=== PATIENT | male | born 1975 | race Caucasian/White ===

== ENCOUNTER 2025-02-03 18:34 | Emergency (ER) | payer BC, SELFPAY ==
[2025-02-03 18:38] VITALS: BP 124/82
--- NOTE | 2025-02-03 18:50 | ED.GENMED ---
ED Provider Triage
<Mignon Doll PA-C - Last Filed: 02/03/25 18:51>
-
Patient seen by provider in Triage?: Seen in Triage
Attestation: A medical screening examination has been initiated by a qualified medical provider. Based on the assessment performed at this time, it has been determined that an emergent medical condition may exist and the patient has been informed
that further medical evaluation and possible additional diagnostic testing may be needed.
HPI: 49yoM here with L testicular pain x 3 days and blurred vision x 2 days. Feels like it is hard to focus. Had some pain with urination earlier. No headache or dizziness.
GENERAL: Alert , in no apparent distress
EYE: No visual abnormalities.
NECK: Trachea midline
ENT: No visible abnormalities.
LUNGS: No acute respiratory distress
NEUROLOGICAL: Alert and oriented
SKIN: Skin intact. No visible changes.
MUSCULOSKELETAL: Moving extremities normally
PSYCH: Normal and appropriate interaction.
This is a medical evaluation conducted in person to initiate diagnostic evaluation and provide initial therapeutics. Please see further documentation by the treating clinician.
Basic labs, UA, scrotal ultrasound, and CT head ordered.
History of Present Illness
<Mignon Doll PA-C - Last Filed: 02/03/25 18:51>
General
Chief Complaint: Visual Problem
Time Seen by Provider: 02/03/25 23:36
<Eleazar Reyes DO - Last Filed: 02/04/25 00:01>
General
Source: patient
History of Present Illness
History of Present Illness:
Note:
CHIEF COMPLAINT(S)
Vision changes and abdominal pain.
HISTORY OF PRESENT ILLNESS
The patient is a 49-year-old male who presents with complaints of altered vision and abdominal discomfort. Symptoms began on Monday. The patient describes his vision as being out of focus, seeing double when using one eye at a stoplight. He
attempted to manage symptoms with increased sugar intake, like cupcakes and chocolate milk, believing it may be related to low blood sugar, which appeared to help temporarily. However, vision changes persisted, particularly worsening late in the day
yesterday and continuing to be problematic today. Additionally, the patient reports abdominal pain, associating the onset with a different abdominal workout done at the gym on . He mentions soreness and pain during movements involving
lifting his legs. The patient denies any headache but describes a feeling of 'head not being right,' suggesting some disorientation. Urinary symptoms include painful urination with reduced flow. There is no hematuria. He mentioned no significant
limitation in physical activities despite the visual disturbances.
PAST MEDICAL AND SURGICAL HISTORY
The patient has a surgical history of cholecystectomy (gallbladder removal).
CHRONIC MEDICAL CONDITIONS SIGNIFICANTLY AFFECTING CARE
The patient has a history of hyperlipidemia, for which he is taking medication.
SOCIAL DETERMINANTS AFFECTING HEALTH
The patient reports engaging frequently in vaping, which may be contributing to his symptoms.
MEDICATIONS
- Atorvastatin for hyperlipidemia
- Meloxicam for severe arthritis
- Cortisone shots every four months for arthritis
REVIEW OF SYSTEMS
- Vision: Blurred vision, seeing double in one eye.
- Genitourinary: Painful urination, decreased flow.
- Neurological: No headaches, but a sensation of the head feeling 'off.'
- Musculoskeletal: Pain and tenderness during leg lifting, potentially linked to recent gym activity.
PHYSICAL EXAM
General: Alert, oriented. No acute distress.
Abdomen: Tenderness noted in the suprapubic area.
Neurological: Cranial nerves intact, normal [id number] test, no pronator drift.
Genitourinary: Testicles normal, tenderness noted at the base of the bilateral scrotum, penis normal.
PLAN
- Review ultrasound and lab results for further assessment.
- Discharge with advice to monitor symptoms, particularly scrotal tenderness.
- Recommend reducing or discontinuing vaping if possible.
- Suggest using tight underwear and taking ibuprofen for pain management.
- Follow up with visual acuity tests and a possible program attendant consultation if vision does not improve.
DIFFERENTIAL DIAGNOSIS
The Differential Diagnosis includes, in no particular order and is not limited to:
- Strain from abdominal workout
- Urinary tract infection
- Benign prostatic hyperplasia
- Visual disturbances secondary to possible systemic issues
- Eye strain or ocular problem
- Anxiety-related visual symptoms
- Early diabetic retinopathy
- Hypertension-related vision changes
- Neurological disorder affecting vision
- Migraine with visual aura
Disposition:
SUMMARY OF ENCOUNTER
The patient is a 49-year-old male who presented with complaints of lower abdominal discomfort extending into the scrotum and groin, predominantly on the left side, and intermittent blurred vision. He reported that while his gross vision is normal,
he struggles with fine detail. The patient had been involved in an abdominal muscle workout recently, which he associates with his symptoms. A comprehensive evaluation was conducted, including a normal urinalysis, normal comprehensive metabolic
panel (CMP), liver function tests (LFT), and complete blood count (CBC). A CT scan of the head revealed no intracranial hemorrhage and was otherwise unremarkable. An ultrasound of the scrotum showed no evidence of testicular torsion, epididymitis,
or significant pathology, with only small bilateral hydroceles noted. The patient�s physical exam was grossly benign, showing no evidence of stroke.
PLAN
Recommend follow-up with primary care physician (PCP) and ophthalmology if symptoms persist. Advised to avoid vaping due to possible health implications.
INDEPENDENT REVIEW OF LABS AND INTERPRETATION OF TESTS
- My independent review of the urinalysis is negative.
- My independent review of the comprehensive metabolic panel (CMP) is normal.
- My independent review of liver function tests (LFT) is normal.
- My independent review of the complete blood count (CBC) is normal, with white cell count and hemoglobin levels within normal limits.
RADIOLOGY RESULTS
- My independent interpretation of the CT scan of the head shows no intracranial hemorrhage and is otherwise normal.
- My independent interpretation of the ultrasound of the scrotum shows no sonographic evidence of testicular torsion or epididymitis; small bilateral hydroceles are present.
PATIENT EDUCATION AND COUNSELING
Informed the patient about the importance of follow-up care with a primary care physician and program attendant if symptoms persist. Advised to avoid vaping, as it may contribute to health issues.
FOLLOW-UP INSTRUCTIONS
The patient was advised to follow up with his primary care physician and to schedule an ophthalmology appointment if visual symptoms continue.
MEDICATION RECONCILIATION
The patient mentioned using an algae medicine which needs verification for specifics.
MEDICAL DECISION MAKING
- Complexity of Data Reviewed: Chronic conditions affecting care include hyperlipidemia. Differential diagnoses considered include strain from the abdominal workout, urinary tract infection, benign prostatic hyperplasia, visual disturbances due to
potential systemic issues, eye strain, anxiety-related visual symptoms, early diabetic retinopathy, hypertension-related vision changes, neurological disorder affecting vision, and migraine with visual aura.
- Data:
- Category 1:
- Testing reviewed included comprehensive metabolic panel (CMP), complete blood count (CBC), liver function tests (LFT), CT scan of the head, and ultrasound of the scrotum.
- Category 2: None applicable.
- Category 3: None discussed.
- Risk: Consideration of Admission/Observation: Escalation of care including admission/observation was considered given the complexity and risk of the patients presenting complaint and underlying health status. However, ultimately, the patient was
deemed safe for outpatient management with close follow-up due to reassuring work-up results, stable vital signs, and the patients reliability and agreement with outpatient discharge.
DIAGNOSIS
- Abdominal pain, likely related to recent abdominal muscle strain (ICD-10: R10.84)
- Bilateral hydroceles (ICD-10: N43.3)
- Intermittent binocular vision changes (ICD-10: H53.8)
Phy Exam
<Eleazar Reyes DO - Last Filed: 02/04/25 00:01>
Physical Exam
Physical Exam:
.
Course
<Mignon Doll PA-C - Last Filed: 02/03/25 18:51>
Orders/Labs/Results
Orders:
Orders
02/03/25 18:46
CT Head W/o Iv Contrast Urgent
Comment:
Reason For Exam: blurred vision
Visual Acuity- Treatment ONCE
02/03/25 18:49
Scrotum US [US Scrotum] Urgent
Comment:
Reason For Exam: L testicle pain
02/03/25 18:56
Complete Blood Count/With Diff Urgent
Comprehensive Metabolic Panel Urgent
02/03/25 21:48
Urinalysis Reflex To Culture Urgent
Date Specimen was Collected: 02/03/25
Time Specimen was Collected: 21:47
Abnormal Lab Results
02/03/25
18:56
Absolute Monos (auto) 0.9 H 10^3/uL
(0.1-0.6)
Lymphocytes % 20.0 L %
(20.5-51.1)
Monocytes % 9.4 H %
(1.7-9.3)
Chloride 108 H mmol/L
(98-107)
Glucose 104 H mg/dl
(70-99)
02/03/25 18:56
02/03/25 18:56
Vital Signs
Initial and Last Documented VS:
Initial Vital Signs
Temp Pulse Resp BP Pulse Ox
99.1 F 85 16 124/82 96
02/03/25 18:38 02/03/25 18:38 02/03/25 18:38 02/03/25 18:38 02/03/25 18:38
Last Documented Vital Signs
Temp Pulse Resp BP Pulse Ox
99.1 F 85 16 124/82 96
02/03/25 18:38 02/03/25 18:38 02/03/25 18:38 02/03/25 18:38 02/03/25 18:50
<Eleazar Reyes DO - Last Filed: 02/04/25 00:01>
Orders/Labs/Results
Orders:
Orders
02/03/25 18:46
CT Head W/o Iv Contrast Urgent
Comment:
Reason For Exam: blurred vision
Visual Acuity- Treatment ONCE
02/03/25 18:49
Scrotum US [US Scrotum] Urgent
Comment:
Reason For Exam: L testicle pain
02/03/25 18:56
Complete Blood Count/With Diff Urgent
Comprehensive Metabolic Panel Urgent
02/03/25 21:48
Urinalysis Reflex To Culture Urgent
Date Specimen was Collected: 02/03/25
Time Specimen was Collected: 21:47
Abnormal Lab Results
02/03/25
18:56
Absolute Monos (auto) 0.9 H 10^3/uL
(0.1-0.6)
Lymphocytes % 20.0 L %
(20.5-51.1)
Monocytes % 9.4 H %
(1.7-9.3)
Chloride 108 H mmol/L
(98-107)
Glucose 104 H mg/dl
(70-99)
02/03/25 18:56
02/03/25 18:56
Vital Signs
Initial and Last Documented VS:
Initial Vital Signs
Temp Pulse Resp BP Pulse Ox
99.1 F 85 16 124/82 96
02/03/25 18:38 02/03/25 18:38 02/03/25 18:38 02/03/25 18:38 02/03/25 18:38
Last Documented Vital Signs
Temp Pulse Resp BP Pulse Ox
99.1 F 85 16 124/82 96
02/03/25 18:38 02/03/25 18:38 02/03/25 18:38 02/03/25 18:38 02/03/25 18:50
kevin;HONEY Michael Last Filed: 02/03/25 18:51>
*Pulse Oximetry
SaO2: 96
Oxygen Mode of Delivery: Room air
<Eleazar Reyes DO - Last Filed: 02/04/25 00:01>
*Pulse Oximetry
Patient hypoxic: no
*Critical Care Note
Total Time (30-74mins, 75-104mins- exclusive of procedures): Not Applicable
Data Reviewed
Source: patient
ED Attending Note
<Mignon Doll PA-C - Last Filed: 02/03/25 18:51>
-
Portions of this chart may have been created with voice recognition software.� Occasional wrong word or��sound alike� substitutions may have occurred due to the inherent limitations of voice recognition software.
Discharge Plan
Departure
Patient Disposition: Home (Routine Discharge)
Date of Disposition: 02/03/25
Time of Disposition: 23:59
Patient with high blood pressure during this ER visit?: Yes
Discharge Problem:
Blurred vision, Groin pain
Instructions: BLOOD PRESSURE
Activity Restrictions/Additional Instructions:
Groin pain
Vision changes
Possible abdominal wall strain
Please use ibuprofen every 6 hours for the next 3 days and wear tight fitting underwear. Return immediately for fevers, worsening symptoms, difficulty urinating, abdominal pain, vomiting, headache, loss of vision or any other concerns. Please see
your doctor in the next 2 to 3 days for follow-up and reevaluation. Follow-up with ophthalmology may also be necessary if symptoms persist. Please stop vaping.
Discharge Date and Time
Print Language: ROMANSH
[2025-02-03 19:04] LABS: Hematocrit 45.0 % (39.0-52.0); Hemoglobin 15.4 g/dL (13.0-18.0); Mean Corp Hgb Conc. 34.2 g/dL (33.0-37.0); Mean Corpuscular Volume 89.3 fL (80.0-94.0); Nucleated Red Blood Cells % 0 % (-); Platelet Count 215 10^3/uL (130-400); Red Cell Dist. Width 14.1 % (11.5-14.5)
[2025-02-03 19:20] LABS: ALT (SGPT) 21 U/L (0-50); AST (SGOT) 23 U/L (17-59); Albumin 4.6 g/dl (3.5-5.0); Alkaline Phosphatase 73 U/L (38-126); Blood Urea Nitrogen 19 mg/dl (9-20); Calcium 9.1 mg/dl (8.4-10.2); Carbon Dioxide 25 mmol/L (22-30); Chloride 108 mmol/L (98-107); Glucose 104 mg/dl (70-99); Potassium 4.2 mmol/L (3.5-5.1); Sodium 142 mmol/L (135-145); Total Protein 7.4 g/dl (6.3-8.2); eGFR > 60.00
[2025-02-03 22:08] LABS: Urine Character Slightly Cloudy (Clear)
[2025-02-04 00:04] VITALS: BMI 31.1
[2025-02-04 00:22] VITALS: BP 126/76
== END 2025-02-04 00:24 | disposition home or self-care (01) ==
LOC: EMR 18:34
PROVIDERS: Physician Assistant; EMERGENCY PHYSICIAN Emergency Medicine; FAMILY PHYSICIAN Family Medicine
DX: H53.8 Other visual disturbances (principal); R10.30 Lower abdominal pain, unspecified; N43.3 Hydrocele, unspecified; N50.812 Left testicular pain; E78.5 Hyperlipidemia, unspecified; F17.290 Nicotine dependence, other tobacco product, uncomplicated; Z90.49 Acquired absence of other specified parts of digestive tract
CPT/HCPCS: 99284; 70450; 76870; 80053; 81003; 85025; 93976